=== PATIENT | male | born 1980 | race Two or more races ===

== ENCOUNTER 2017-01-24 22:51 | Emergency (ER) | payer MEDICAID ==
[~2017-01-24] VITALS: Ht 167.6 cm; Wt 77.1 kg
[2017-01-24 23:02] VITALS: BP 129/78
== END 2017-01-25 02:38 | disposition home or self-care (01) ==
LOC: ER 22:55 → EDBD 22:55 → ER 01-25 02:38
DX: S33.5XXA Sprain of ligaments of lumbar spine, initial encounter (principal); S16.1XXA Strain of muscle, fascia and tendon at neck level, initial encounter; J02.9 Acute pharyngitis, unspecified; V43.52XA Car driver injured in collision with other type car in traffic accident, initial encounter; Y93.89 Activity, other specified; Y92.488 Other paved roadways as the place of occurrence of the external cause; Y99.8 Other external cause status